=== PATIENT | female | born 1950 | race Caucasian/White ===

== ENCOUNTER → 2018-05-05 | Outpatient (CLI) | payer OTHER ==
[~2018-05-05] MED LIST: ASPIRIN81 M1; ASPIRIN81 M1 PO; AUGMENTIN 500 M1 TAB PO; B COMPLEX1 EACH PO; B1; B121000 MCG/1 PO; B6; CALCIUM/VIT D; CALCIUM/VITAMIN1 TA8 PO; HYDR12.5C PO; LYRICA75 MG; NAPROXEN500 M1; PREMARIN0.3 MG; TRAMADOL HYDROC50 MG; TRIAMTERENE/HCT1 CAP; VISION FORMULA1 TAB; VITAMIN B-6200 MG PO; VITAMIN D1000 IU PO
[2018-05-05 08:11] LABS: BASO % 0.5 % (0.0-1.0); EOS # 0.1 10*3/uL (0.0-0.4); EOS % 1.2 % (1.0-4.0); HEMATOCRIT 41.2 % (37.0-47.0); HEMOGLOBIN 13.1 g/dl (12.0-16.0); LYMPH # 2.2 10*3/uL (1.3-4.4); LYMPH % 30.1 % (27.0-41.0); MEAN CELL VOLUME 94.3 fl (81.0-99.0); MEAN CORPUSCULAR HGB CONC 31.8 g/dl (33.0-37.0); MEAN PLATELET VOLUME 10.1 fl (9.6-12.3); MONO # 0.6 10*3/uL (0.1-1.0); MONO % 7.7 % (3.0-9.0); NEUT # 4.4 10*3/uL (2.3-7.9); NEUT % 60.1 % (47.0-73.0); PLATELET COUNT AUTOMATED 223 10*3/uL (130-400); RED BLOOD COUNT 4.37 10*6/uL (4.10-5.10); RED CELL DISTRI WIDTH 13.8 % (0-14.5); WHITE BLOOD COUNT 7.3 10*3/uL (4.8-10.8)
[2018-05-05 08:27] LABS: ALBUMIN 3.7 gm/dl (3.1-4.5); ALKALINE PHOSPHATASE 69 U/L (45-117); BUN 24 mg/dl (7-24); CHLORIDE 105 mmol/L (98-107); CHOLESTEROL 152 mg/dL (<200); CREATININE 0.81 mg/dL (0.55-1.02); HDL CHOLESTEROL 50 mg/dl (40-60); LDL CHOLESTEROL 80 mg/dL (9-159); POTASSIUM 3.8 mmol/L (3.5-5.1); SGOT/AST 11 IU/L (3-35); SGPT/ALT 22 U/L (12-78); SODIUM 145 mmol/L (136-145); TOTAL PROTEIN 7.6 gm/dL (6.4-8.2); TRIGLYCERIDES 110 mg/dl (<150); VLDL CHOLESTEROL 22 mg/dL (6-40)
== END | disposition home or self-care (01) ==
LOC: LAB 07:45
PROVIDERS: Internal Medicine
DX: E55.9 Vitamin D deficiency, unspecified (principal); Z95.0 Presence of cardiac pacemaker

== ENCOUNTER → 2021-02-26 | Outpatient (CLI) | payer OTHER | END | disposition home or self-care (01) | LOC: COVID19 16:14 | PROVIDERS: ATTEND Internal Medicine | DX: Z11.52 Encounter for screening for COVID-19 (principal) ==

== ENCOUNTER 2022-12-07 15:30 | Emergency (ER) | payer OTHER ==
[~2022-12-07] VITALS: Ht 177.8 cm; Wt 99.8 kg
== END 2022-12-07 19:35 | disposition left against medical advice (07) ==
LOC: ED 15:30
DX: M54.9 Dorsalgia, unspecified (principal); Z88.2 Allergy status to sulfonamides; Z88.5 Allergy status to narcotic agent; Z53.21 Procedure and treatment not carried out due to patient leaving prior to being seen by health care provider

== ENCOUNTER 2024-11-18 12:38 | Inpatient (IN) | payer OTHER ==
[2024-11-18] VITALS (14 sets, daily range): BP systolic 79–100; BP diastolic 46–62
[~2024-11-18] VITALS: Ht 165.1 cm; Wt 85.9 kg
[2024-11-18] MEDS ORDERED: SODIUM CHLORIDE 0.9% 2,000 ML IV ONE (13:03)
[2024-11-18] MEDS ORDERED: SODIUM CHLORIDE 0.9% 1,000 ML IV ONE ×4 (13:05→19:50)
[2024-11-18] MEDS ORDERED: SODIUM CHLORIDE 0.9% 1,000 ML IV SCH (13:05)
[2024-11-18 13:14] LABS: BILIRUBIN 2+ (Negative); BLOOD Negative (Negative); CLARITY Cloudy (Clear); COLOR Dark Yellow (Yellow); KETONE Negative (Negative); LEUKO ESTERASE 1+ (Negative); NITRITE Negative (Negative); PH 5.0 (4.5-8.0); SPECIFIC GRAVITY 1.025 (1.001-1.030); UROBILINOGEN 1.0 E.U./dl (0.0-1.0)
[2024-11-18] MEDS ORDERED: IOHEXOL 300 MG/ML 100 ML VIAL IV ONE (13:15)
[2024-11-18 13:32] LABS: BACTERIA 4+; COARSE GRANULAR CAST 21-30; WBC 21-30 wbc/hpf (0-5)
[2024-11-18] MEDS ORDERED: IOHEXOL 300 MG/ML 100 ML VIAL ONE (13:39)
[2024-11-18 14:04] LABS: ABG O2 SATURATION 99.2 % (94.0-98.0); ARTERIAL BLOOD GAS PH 7.278 (7.350-7.450)
[2024-11-18 14:07] LABS: ABG BASE EXCESS -4.8 mmol/L (-2.0-3.0)
[2024-11-18 14:10] LABS: ARTERIAL BLOOD GAS PO2 436.0 mmHg (83.0-108.0)
[2024-11-18 15:27] LABS: ACT PARTIAL THROMBO TIME 28.2 SECONDS (20.0-32.1)
[2024-11-18] MEDS ORDERED: HEPARIN SODIUM 250 ML IV SCH (15:35)
[2024-11-18 15:41] LABS: BUN 66.0 mg/dl (9-23); SGPT/ALT 93.0 U/L (5-49)
[2024-11-18 15:47] LABS: MEAN CELL VOLUME 93.3 fl (81.0-99.0); MEAN CORPUSCULAR HGB 29.7 pg (27.0-31.0); MEAN PLATELET VOLUME 13.0 fl (9.6-12.3); NUCLEATED RED BLOOD CELL 0.0 % (0.0-0.0); NUCLEATED RED BLOOD CELL 0.0 10*3/uL (0.0-0.0); RED CELL DISTRI WIDTH 14.0 % (0-14.5)
[2024-11-18 15:51] LABS: MANUAL DIFF REFLEX YES
[2024-11-18 15:54] LABS: PLATELET COUNT AUTOMATED 45 10*3/uL (130-400)
[2024-11-18 16:10] LABS: PLATELET SUFFICIENCY LOW (NORMAL)
[2024-11-18] MEDS ORDERED: TRIAMTERENE-HC1 EACH PO (16:12)
[2024-11-18] MEDS ORDERED: ROCURONIUM BROMIDE 50 MG/5 ML SYRINGE IV ONE (16:29)
[2024-11-18] MEDS ORDERED: ETOMIDATE 20 MG/10 ML VIAL IV ONE (16:29)
[2024-11-18] MEDS ORDERED: NOREPINEPHRINE BITARTRATE/D5W 250 ML IV SCH (20:30)
[2024-11-18] MEDS ORDERED: NOREPINEPHRINE BITARTRATE/D5W 250 ML IV ONE (20:49)
[2024-11-19] VITALS (21 sets, daily range): BP systolic 72–106; BP diastolic 27–56
[2024-11-19] MEDS ORDERED: Piperacillin Sodium/Tazobact 2.25 GM in SODIUM CHLORIDE 0.9% 50 ML IV ONE (00:05)
[2024-11-19] MEDS ORDERED: SODIUM CHLORIDE 0.9% 1,000 ML IV ONE ×2 (00:20→04:30)
[2024-11-19 05:51] LABS: BUN 69.0 mg/dl (9-23)
[2024-11-19 06:19] LABS: MEAN CELL VOLUME 96.3 fl (81.0-99.0); MEAN CORPUSCULAR HGB 30.3 pg (27.0-31.0); MEAN PLATELET VOLUME 14.3 fl (9.6-12.3); NUCLEATED RED BLOOD CELL 0.0 % (0.0-0.0); NUCLEATED RED BLOOD CELL 0.0 10*3/uL (0.0-0.0); PLATELET COUNT AUTOMATED 55 10*3/uL (130-400); RED CELL DISTRI WIDTH 14.7 % (0-14.5)
[2024-11-19 06:56] LABS: MANUAL DIFF REFLEX YES
[2024-11-19] MEDS ORDERED: ACETAMINOPHEN 650 MG SUPP R ONE (07:35)
[2024-11-19] MEDS ORDERED: BISACODYL 10 MG SUPP R PRN (07:40)
[2024-11-19] MEDS ORDERED: BISACODYL 5 MG TAB PO PRN (07:40)
[2024-11-19] MEDS ORDERED: Ondansetron Hydrochloride 4 MG/2 ML VIAL IV PRN (07:40)
[2024-11-19] MEDS ORDERED: Vancomycin Hydrochloride 1,000 MG in SODIUM CHLORIDE 0.9% 250 ML IV SCH (07:45)
[2024-11-19] MEDS ORDERED: Piperacillin Sodium/Tazobact 2.25 GM in SODIUM CHLORIDE 0.9% 50 ML IV SCH (08:00)
[2024-11-19 08:19] LABS: PLATELET SUFFICIENCY LOW (NORMAL)
[2024-11-19] MEDS ORDERED: MAGNESIUM SULFATE 100 ML IV ONE (11:50)
[2024-11-19] MEDS ORDERED: EPINEPHrine IN 0.9 % SOD CHLOR 250 ML IV SCH (12:00)
[2024-11-19 12:14] LABS: ABG O2 SATURATION 99.2 % (94.0-98.0); ARTERIAL BLOOD GAS PO2 167.1 mmHg (83.0-108.0)
[2024-11-19 12:22] LABS: ABG BASE EXCESS -14.8 mmol/L (-2.0-3.0); ARTERIAL BLOOD GAS PH 7.167 (7.350-7.450)
[2024-11-20] MEDS ORDERED: VANCOMYCIN HCL 1,250 MG in SODIUM CHLORIDE 0.9% 250 ML IV SCH (22:00)
== END 2024-11-19 12:55 | disposition short-term general hospital (02) | DRG 871 ==
LOC: ED 12:38 → EDHOLD 11-19 07:16
PROVIDERS: Internal Medicine; ADMIT Internal Medicine; ATTEND Internal Medicine
PROC: 0BH17EZ Insertion of Endotracheal Airway into Trachea, Via Natural or Artificial Opening (ICD-10-PCS; principal; 2024-11-18)
PROC: 5A1935Z Respiratory Ventilation, Less than 24 Consecutive Hours (ICD-10-PCS; 2024-11-18)
PROC: 06HY33Z Insertion of Infusion Device into Lower Vein, Percutaneous Approach (ICD-10-PCS; 2024-11-18)
PROC: B54NZZA Ultrasonography of Left Upper Extremity Veins, Guidance (ICD-10-PCS; 2024-11-18)
DX: A41.9 Sepsis, unspecified organism (principal); I26.94 Multiple subsegmental thrombotic pulmonary emboli without acute cor pulmonale; J18.9 Pneumonia, unspecified organism; J96.01 Acute respiratory failure with hypoxia; R65.21 Severe sepsis with septic shock; J96.02 Acute respiratory failure with hypercapnia; N17.9 Acute kidney failure, unspecified; M62.82 Rhabdomyolysis; N30.00 Acute cystitis without hematuria; R73.9 Hyperglycemia, unspecified; D69.6 Thrombocytopenia, unspecified; Z88.2 Allergy status to sulfonamides; Z88.8 Allergy status to other drugs, medicaments and biological substances; Z79.899 Other long term (current) drug therapy; Z79.01 Long term (current) use of anticoagulants; Z79.2 Long term (current) use of antibiotics; Z90.710 Acquired absence of both cervix and uterus; Z82.49 Family history of ischemic heart disease and other diseases of the circulatory system; Z83.3 Family history of diabetes mellitus